=== PATIENT | female | born 1950 | race Caucasian/White ===

== ENCOUNTER 2016-07-06 21:06 | Emergency (ER) | payer OTHER, BC ==
[~2016-07-06] VITALS: Ht 180.3 cm; Wt 84.1 kg
[~2016-07-06 21:06] MED LIST: ACCUPRIL20 MG PO; ALBUTEROL17 GM IH; ASPIR-TRIN325 M1 PO; CRESTOR10 MG PO; FLOVENT 11120 INHALA IH; GLUCOPHAGE XR,500 MG PO; GLUCOPHAGE500 MG PO; HYDROCHLOROTHIA25 MG PO
[2016-07-06 22:25] LABS: HEMATOCRIT 43.8 % (36.0-46.0); MCH 27.8 PG (29.0-34.0); MCHC 33.1 G/DL (30.0-36.0); MCV 84.1 FL (83-99); MEAN PLAT.VOLUME 10.3 uM^3 (9.5-12.4); PLATELET COUNT 191 K/uL (156-360); RBC DIS.WIDTH-CV 13.2 % (11.8-14.6); RBC DIS.WIDTH-SD 40.9 % (39-53); RED BLOOD COUNT 5.21 M/uL (3.80-5.20); WHITE BLOOD COUNT 10.8 K/uL (4.1-10.2)
[2016-07-06 22:35] LABS: PROTHROMBIN TIME 9.8 (9.2-11.2); PTT 27.6 (25-32)
[2016-07-06 22:36] LABS: CHLORIDE 105 mEq/L (99-109); POTASSIUM 3.5 mEq/L (3.7-5.4); SODIUM 141 mEq/L (136-147)
[2016-07-06 22:37] LABS: GLUCOSE 186 mg/dL (70-99)
[2016-07-06 22:39] LABS: ANION GAP 12 MEQ/L (2-14)
[2016-07-06 22:41] LABS: GFR ESTIMATE (CALCULATED) 59 mL/min/
[2016-07-06 22:42] LABS: UREA NITROGEN (BUN) 18 mg/dL (9-23)
[2016-07-06 22:54] VITALS: BP 172/74
== END 2016-07-06 22:55 | disposition home or self-care (01) ==
LOC: EME 21:06
PROVIDERS: Physician Assistant
DX: T18.128A Food in esophagus causing other injury, initial encounter (principal); J45.909 Unspecified asthma, uncomplicated; E11.9 Type 2 diabetes mellitus without complications; I10 Essential (primary) hypertension; Z79.84 Long term (current) use of oral hypoglycemic drugs; Z79.82 Long term (current) use of aspirin
CPT/HCPCS: 80048; 85027; 85610; 85730; 86900; 86901; 99281; 99284; J7030